=== PATIENT | male | born 2000 | race Two or more races ===

== ENCOUNTER 2022-01-18 15:01 | Emergency (ER) | payer MEDICAID ==
[~2022-01-18] VITALS: Ht 167.6 cm; Wt 81.6 kg
[2022-01-18 15:02] VITALS: BP 147/78
[2022-01-18] MEDS ORDERED: IV NORMAL SALINE 1000ML BAG 1,000 ML IV SCH (15:45)
[2022-01-18] MEDS ORDERED: FAMOTIDINE 20 MG/2 ML VIAL IVP ONE (16:00)
--- NOTE | 2022-01-18 16:06 | PHYS DOC ---
Past Medical History Past Surgical History: No Surgical History Smoking Status: Current Some Day Smoker Alcohol Use: Occasionally General Adult EDM: Chief Complaint: GI PROBLEM HPI: HPI: Patient is a 21 year old male who presents with seizures during days feeling heartburn and then vomited once and he states it was dark in color. He states he had a type of soup that was red in color yesterday prior to this. States it was spicy. States he then had a bowel movement today that was dark in color. He denies abdominal pain, nausea, vomiting, diarrhea, fever, back pain, headache, dizziness, shortness of breath, chest pain, recent illness, urinary symptoms. He states that yesterday he took [facility] for his symptoms. He denies any family history of colon problems. Denies any type of pain at this time. Review of Systems: Review of Systems: Constitutional: Denies fever or chills. [] Eyes: Denies change in visual acuity. [] HENT: Denies nasal congestion or sore throat. [] Respiratory: Denies cough or shortness of breath. [] Cardiovascular: Denies chest pain or edema. [] GI: Denies abdominal pain, nausea, + dark vomiting, denies bloody stools or diarrhea. + Dark stool, + Acid reflux burning [] : Denies dysuria. [] Musculoskeletal: Denies back pain or joint pain. [] Integument: Denies rash. [] Neurologic: Denies headache, focal weakness or sensory changes. [] Endocrine: Denies polyuria or polydipsia. [] Lymphatic: Denies swollen glands. [] Psychiatric: Denies depression or anxiety. [] Heart Score: C/O Chest Pain: No Current Medications: Current Medications Medications (Trade) Dose Ordered Sig/Estrella Start Time Stop Time Status Last Admin Dose Admin Famotidine (Pepcid Vial) 20 mg 1X ONCE 01/18/22 16:00 01/18/22 16:01 UNV Sodium Chloride 1,000 ml @ 1,000 mls/hr Q1H 01/18/22 15:45 01/18/22 16:44 UNV Allergies: Allergies: Allergies Coded Allergies Type Severity Reaction Last Updated Verified No Known Drug Allergies 01/18/22 No Physical Exam: PE: Constitutional: Well developed, well nourished, no acute distress, non-toxic appearance. [] HENT: Normocephalic, atraumatic, bilateral external ears normal, oropharynx moist, no oral exudates, nose normal. [] Eyes: PERRLA, EOMI, conjunctiva normal, no discharge. [] Neck: Normal range of motion, no tenderness, supple, no stridor. [] Cardiovascular:Heart rate regular rhythm, no murmur [] Lungs & Thorax: Bilateral breath sounds clear to auscultation [] Abdomen: Bowel sounds normal, soft, no tenderness, no masses, no pulsatile masses. [] Skin: Warm, dry, no erythema, no rash. [] Back: No tenderness, no CVA tenderness. [] Extremities: No tenderness, no cyanosis, no clubbing, ROM intact, no edema. [] Neurologic: Alert and oriented X 3, normal motor function, normal sensory function, no focal deficits noted. [] Psychologic: Affect normal, judgement normal, mood normal. [] Normal physical exam Current Patient Data: Vital Signs: Vital Signs Date Time Temp Pulse Resp B/P (MAP) Pulse Ox O2 Delivery O2 Flow Rate FiO2 01/18/22 15:02 98.7 97 18 147/78 (101) 100 Room Air 98.7 EKG: EKG: [] Radiology/Procedures: Radiology/Procedures: [] Impression: [facility] [address] [place] [address] IMAGING REPORT Signed PATIENT: JESSIE JEFFREYCCOUNT: [id number] : 2000 LOCATION: ER AGE: 21 SEX: M EXAM STATUS: REG ER ORD. PHYSICIAN: AMRIANA COFFMAN APRN REASON: VOMITING DARK VOMIT, AND DARK STOOL PROCEDURE: CT ABD PELV W/ IV CONTRST ONLY INDICATION: Reason: VOMITING DARK VOMIT, AND DARK STOOL / Spl. Instructions: OM [id number] 75ML [phone] / History: COMPARISON: None available TECHNIQUE: Axial CT images were obtained through the abdomen and pelvis with intravenous contrast. One or more of the following individualized dose reduction techniques were utilized for this examination: 1. Automated exposure control; 2. Adjustment of the mA and/or kV according to patient size; 3. Use of iterative reconstruction technique. FINDINGS: Vascular: No abdominal aortic aneurysm. Hepatobiliary: No intrahepatic biliary duct dilation. Pancreas: No peripancreatic edema. Spleen: Spleen unremarkable. Renal/Bladder: No hydronephrosis. Gastrointestinal: No periappendiceal inflammatory changes. Sigmoid colon is not very distended but there is some mild prominence of the wall. Mild colonic diverticula. Scattered lymph nodes in the mesentery. Scattered bone islands. Mild degenerative changes spine. IMPRESSION: * The sigmoid colon is not very distended but there are some mild prominence of the wall. Could be from an area contraction but mild diverticulitis could have this appearance given the patient's symptoms. Electronically signed by: Zena Perez MD (01/18/2022 5:09 PM) [id number] DICTATED and SIGNED BY: ZENA PEREZ MD DATE: 01/18/22 [id number] 0 Course & Med Decision Making: Course & Med Decision Making Pertinent Labs and Imaging studies reviewed. (See chart for details) See HPI. Alert and oriented x4. Ambulatory steady gait. Skin pink warm and dry. Abdomen is soft and nontender. Vital signs are within normal limits. Rectal Exam: Normal tone, No mass, Positive control Stool: Brown Guaiac: Negative CT shows possible diverticulitis. Blood work is completely stable. Patient is stable. He is tolerating p.o. intake. He has no abdominal tenderness. Denies any abdominal pain. Patient is stable and can follow-up as an outpatient. He will be put on Pepcid for acid reflux. [] Ovi Disclaimer: Ovi Disclaimer: This electronic medical record was generated, in whole or in part, using a voice recognition dictation system. Departure Departure Impression: Primary Impression: GERD (gastroesophageal reflux disease) Qualified Codes: K21.9 - Gastro-esophageal reflux disease without esopha gitis Disposition: HOME / SELF CARE / HOMELESS Condition: STABLE Referrals: NO PCP (PCP) GAGE DAMIAN MD Patient Instructions: Diet for Gastroesophageal Reflux Disease, Adult, Gastroesophageal Reflux Disease, Adult Additional Instructions: Follow-up with a gastrointestinal doctor of your choosing or I have referred you to one as soon as possible. Take medication as prescribed and with food. Drink plenty of fluids. If your symptoms worsen or you begin having severe abdominal pain return to the emergency room. Scripts Famotidine (PEPCID) 20 Mg Tablet 20 MG PO BID, #30 TAB Prov: MARIANA COFFMAN APRN 01/18/22 MARIANA COFFMAN APRN Jan 18, 2022 16:06
[2022-01-18 16:13] LABS: BASO # 0.1 x10^3/uL (0.0-0.2); BASO % 1 % (0-3); EOS # 0.2 x10^3/uL (0.0-0.7); EOS % 2 % (0-3); HEMATOCRIT 45.4 % (39.0-53.0); HEMOGLOBIN 15.2 g/dL (13.0-17.5); LYMPH # 2.6 x10^3/uL (1.0-4.8); LYMPH % 25 % (24-48); MEAN CORPUSCULAR HEMOGLOBIN 30 pg (25-35); MEAN CORPUSCULAR HGB CONC 34 g/dL (31-37); MEAN CORPUSCULAR VOLUME 91 fL (79-100); MONO # 0.7 x10^3/uL (0.0-1.1); MONO % 7 % (0-9); NEUT # 6.8 x10^3/uL (1.8-7.7); NEUT % 65 % (31-73); PLATELET COUNT 314 x10^3/uL (140-400); RED CELL DISTRIBUTION WIDTH 12.7 % (11.5-14.5); WHITE BLOOD COUNT 10.5 x10^3/uL (4.0-11.0)
[2022-01-18 16:18] LABS: FECAL OB PT NEGATIVE (NEG)
[2022-01-18 16:23] LABS: CALCIUM 8.9 mg/dL (8.5-10.1); GFR 94.3; POTASSIUM 3.8 mmol/L (3.5-5.1)
[2022-01-18 16:29] LABS: ALBUMIN 4.1 g/dL (3.4-5.0); TOTAL BILIRUBIN 0.7 mg/dL (0.2-1.0); TOTAL PROTEIN 8.4 g/dL (6.4-8.2)
[2022-01-18] MEDS ORDERED: IOHEXOL 300 MG/ML 100ML VIAL. IV ONE (16:45)
[2022-01-18] MEDS ORDERED: CONTRAST GIVEN. MC PRN (16:45)
--- NOTE | 2022-01-18 17:12 | RAD ---
INDICATION: Reason: VOMITING DARK VOMIT, AND DARK STOOL / Spl. Instructions: [id number] 75ML / History: COMPARISON: None available TECHNIQUE: Axial CT images were obtained through the abdomen and pelvis with intravenous contrast. One or more of the following individualized dose reduction techniques were utilized for this examinat ion: 1. Automated exposure control; 2. Adjustment of the mA and/or kV according to patient size; 3 . Use of iterative reconstruction technique. FINDINGS: Vascular: No abdominal aortic aneurysm. Hepatobiliary: No intrahepatic biliary duct dilation. Pancreas: No peripancreatic edema. Spleen: Spleen unremarkable. Renal/Bladder: No hydronephrosis. Gastrointestinal: No periappendiceal inflammatory changes. Sigmoid colon is not very distended but th ere is some mild prominence of the wall. Mild colonic diverticula. Scattered lymph nodes in the mesen alfredo. Scattered bone islands. Mild degenerative changes spine. IMPRESSION: * The sigmoid colon is not very distended but there are some mild prominence of the wall. Could be from an area contraction but mild diverticulitis could have this appearance given the patient's sympt oms. Electronically signed by: Andrew Azar MD (01/18/2022 5:09 PM) [id number]
[2022-01-18] MEDS ORDERED: AMOX1TAB10 PO (17:27)
[2022-01-18] MEDS ORDERED: FAMO-63 PO (17:27)
[2022-01-18 18:04] LABS: BILIRUBIN,URINE NEGATIVE (NEG); CLARITY,URINE CLEAR; COLOR,URINE YELLOW; NITRITE,URINE NEGATIVE (NEG); PH,URINE 7.5 (<5.0-8.0); PROTEIN,URINE NEGATIVE (NEG-TRACE)
[2022-01-18 18:10] LABS: BACTERIA,URINE 0 /HPF (0-FEW); WBC,URINE OCC /HPF (0-4)
[2022-01-18 18:11] LABS: AMPHETAMINE/METHAMPHETAMINE NEG (NEG); BARBITURATES NEG (NEG); BENZODIAZEPINES NEG (NEG); CANNABINOIDS POS (NEG); COCAINE NEG (NEG); METHADONE NEG (NEG); OPIATES NEG (NEG); PHENCYCLIDINE NEG (NEG)
== END 2022-01-18 18:43 | disposition home or self-care (01) ==
LOC: ER 15:01
DX: K21.9 Gastro-esophageal reflux disease without esophagitis (principal); F17.200 Nicotine dependence, unspecified, uncomplicated
CPT/HCPCS: 36415; 74177; 80053; 80307; 81001; 82274; 83690; 85025; 96361; 96374; 99285; J3490; J7030; Q9967